=== PATIENT | male | born 1960 | race Caucasian/White ===

== ENCOUNTER → 2019-02-21 | Outpatient (CLI) | payer OTHER ==
[~2019-02-21] MED LIST: ASPI-9 PO; BSC10SU PR; HYDR-3458 PO; OXYC60TA9 PO; POLY17PO23 GT
--- NOTE | 2019-02-22 07:19 | Diagnostic Imaging Report ---
INDICATION: Fall with right shoulder pain. AP and lateral views of the right scapula are obtained. FINDINGS: No acute fracture or dislocation is identified. No abnormal lytic or sclerotic focus is seen, and there is no radiopaque foreign body. There is mild narrowing of the acromioclavicular joint. IMPRESSION: No acute abnormality. Mild acromioclavicular degenerative change is present. Dictated by: Dictated on workstation # [id number]
--- NOTE | 2019-02-22 07:21 | Diagnostic Imaging Report ---
INDICATION: Right shoulder and chest pain. FINDINGS: AP and oblique views of right ribs are obtained. No acute fracture or malalignment is identified. There is no abnormal lytic or sclerotic focus. There is no significant pleural fluid. IMPRESSION: No radiographic evidence of displaced right rib fracture. Dictated by: Dictated on workstation # [id number]
== END ==
LOC: RAD FS 11:22
PROVIDERS: ATTEND Nurse Practitioner Family
DX: M19.011 Primary osteoarthritis, right shoulder (principal); R07.81 Pleurodynia; M89.8X1 Other specified disorders of bone, shoulder; W19.XXXA Unspecified fall, initial encounter
CPT/HCPCS: 71100; 73010

== ENCOUNTER → 2019-03-01 | Outpatient (CLI) | payer OTHER ==
--- NOTE | 2019-03-01 12:42 | Diagnostic Imaging Report ---
INDICATION: Neck pain. 5 views of cervical spine were obtained. FINDINGS: There has been an anterior cervical disc fusion from C5 to C7 with plate and screws. Hardware is in satisfactory position. No loosening. Appears be satisfactory fusion. There is no fracture or traumatic subluxation. Odontoids intact and lateral masses are well aligned. Prevertebral soft tissues are within normal limits. There is some degenerative disc disease at C4-C5. IMPRESSION: Stable ACDF from C5 to C7 as described. Degenerative disc disease at C4-C5. Dictated by: Dictated on workstation # [id number]
== END ==
LOC: RAD FS 10:55
PROVIDERS: ATTEND Nurse Practitioner
DX: M50.321 Other cervical disc degeneration at C4-C5 level (principal); Z98.1 Arthrodesis status
CPT/HCPCS: 72050

== ENCOUNTER 2022-08-05 12:43 | Emergency (ER) | payer BC, OTHER ==
--- NOTE | 2022-08-05 12:48 | ED Upper Extremity ---
General Chief Complaint: Upper Extremity Stated Complaint: RT SHOULDER INJ History of Present Illness Date Seen by Provider: August 05, 2022 Time Seen by Provider: 12:47 Initial Comments 62-year-old male presents with chronic right shoulder and upper thoracic back pain. Patient reports that he woke up this morning and had worsening pain in his right arm right shoulder right wrist. He denies any new injury. He reports he is got previous injury both the shoulder area and his neck with a prior neck surgery. He takes extended release and immediate release morphine already for pain. Patient reports that he went to the chiropractor this morning but nothing was done to help him. Patient reports she has had a previous fall over 2 weeks ago. Allergies and Home Medications Allergies Coded Allergies: No Known Drug Allergies (Unverified , 12/22/12) Patient Home Medication List Home Medication List Reviewed: Yes Aspirin/Calcium Carbonate/Mag (Aspirin Buffered 325 Mg Tab) 325 Mg Tablet, 325 MG PO DAILY, (Reported) Entered as Reported by: GWEN HATCH on 12/22/12 0952 Bisacodyl (Dulcolax Pr) 10 Mg Supp, 10 MG [place] DAILY Prescribed by: CHANTAL DEAN on 12/22/12 1112 Hydrocodone Bit/Acetaminophen (Vicodin Hp 10-300 Mg Tablet) 1 Each Tablet, 1 EACH PO, (Reported) Entered as Reported by: GWEN HATCH on 12/22/12 0952 Oxycodone Hcl (Oxycontin) 60 Mg Tab.sr.12h, 60 MG PO Q12H, (Reported) Entered as Reported by: GWEN HATCH on 12/22/12 0952 Polyethylene Glycol (Miralax 17 Gm Packet) 17 Gm Pack, 17 GM GT BID Prescribed by: CHANTAL DEAN on 12/22/12 1112 Review of Systems Constitutional: no symptoms reported Respiratory: no symptoms reported Cardiovascular: no symptoms reported Genitourinary: no symptoms reported Musculoskeletal: see HPI Skin: no symptoms reported Psychiatric/Neurological: No Symptoms Reported Past Hvipsfi-Labacr-Tudumi Hx Past Medical History Gastroesophageal Reflux, Chronic Constipation Rheumatoid Arthritis Physical Exam Vital Signs Vital Signs - First Documented 08/05/22 12:49 Temp 37.2 Pulse 101 Resp 16 B/P (MAP) 154/91 (112) Pulse Ox 98 O2 Delivery Room Air Capillary Refill : Height, Weight, BMI Height: '" Weight: 183lbs. oz. 83.684806uj; BMI Method:Stated General Appearance: WD/WN, no apparent distress Neck: tender lateral; No tender midline Cardiovascular: normal peripheral pulses, regular rate, rhythm Respiratory: chest non-tender, lungs clear, normal breath sounds Back: no vertebral tenderness, other (right posterior shoulder tenderness ) Shoulder: soft tissue tenderness Elbow/Forearm: no evidence of injury Wrist: Yes no evidence of injury Hand: no evidence of injury Neurologic/Psychiatric: alert, other (Confrontational) Skin: normal color, warm/dry Progress/Results/Core Measures Results/Orders My Orders Orders - MCGREGOR,ROSA L DO Shoulder 3 View Right (08/05/22 12:59) Ketorolac Injection (Toradol Injection) (08/05/22 12:59) Orphenadrine Inj (Ed Only) (Norflex Inje (08/05/22 12:59) Wrist 3 View Right (08/05/22 12:59) Vital Signs/I&O 08/05/22 12:49 Temp 37.2 Pulse 101 Resp 16 B/P (MAP) 154/91 (112) Pulse Ox 98 O2 Delivery Room Air Progress Progress Note : Progress Note Patient's initial complaint was for chronic pain that was worse upon his arrival to the ER. Patient was requesting x-rays. I discussed with him that x-rays were not really indicated since there was no injury but that we would obtain one since he had concerns. Patient has prescriptions for both morphine extended and short-term release. When I went to discuss x-ray findings with patient he then brought up the fact that he had a "bee sting" last week in his posterior neck and that he is "sick" I discussed with him that he had not brought this up previously, I looked at his neck and saw a very mild erythema consistent with a healing sting but no signs of infection or other concerns. He then brought up swelling that was new on his bilateral anterior clavicle region. He had not brought this up in my previous visit in the room. When I asked him if he had seen his primary care provider for this he reportedly "cannot get into them" and that he is upset that we do not have a "hospital here" I asked him how long the swelling areas have been there and he reported they have been there for about 4 to 5 days. He also did not mention this when he initially came in I asked him what brought him to the emergency room and he was just complaining of pain in the right arm and shoulder that is chronic. I discussed with patient that if he would like a further evaluation since he just brought this up that we could obtain labs and a CT to further evaluate the swelling. At that time patient once again remained very confrontational and states that he would just go and follow-up with his primary care provider. Patient refused any paperwork at dis charge and just went ahead and left. Diagnostic Imaging Comments Date of Exam:08/05/22 WRIST 3 VIEW RIGHT INDICATION: Right wrist pain. TECHNIQUE: AP, oblique, and lateral views of the right wrist are obtained. FINDINGS: No fracture or acute bony abnormality is seen. Joint spaces are unremarkable. IMPRESSION: Negative right wrist. Reviewed: Reviewed by Me, Reviewed/Discussed Diagonstic Imaging: Xray Comments Date of Exam:08/05/22 SHOULDER 3 VIEW RIGHT INDICATION: Shoulder pain exacerbated by movement. FINDINGS: Three-view right shoulder performed. Glenohumeral alignment appeared anatomic. There is some degenerative changes to the AC joint. No fracture, loose body or erosion. IMPRESSION: Mild degenerative changes with normal alignment and no acute bony abnormality. Reviewed: Reviewed by Me, Reviewed/Discussed Departure Impression Primary Impression: Chronic pain in right shoulder Additional Impression: Arm pain, right Disposition: 01 HOME, SELF-CARE Condition: Stable Departure-Patient Inst. Referrals: BRE VALDEZ MD (PCP) Primary Care Physician Add. Discharge Instructions: Follow-up with your primary care provider for further evaluation All discharge instructions reviewed with patient and/or family. Voiced understanding. ROSA MCGREGOR DO August 05, 2022 12:47
[2022-08-05] MEDS ORDERED: KETOROLAC 30 MG/ML VIAL IM STA (12:59)
[2022-08-05] MEDS ORDERED: ORPHENADRINE 60 MG/2 ML (NORFLEX) AMP (ED ONLY) IM STA (12:59)
--- NOTE | 2022-08-05 13:27 | Diagnostic Imaging Report ---
INDICATION: Shoulder pain exacerbated by movement. FINDINGS: Three-view right shoulder performed. Glenohumeral alignment appeared anatomic. There is some degenerative changes to the AC joint. No fracture, loose body or erosion. IMPRESSION: Mild degenerative changes with normal alignment and no acute bony abnormality. Dictated by: Dictated on workstation # [id number]
[2022-08-05 13:35] VITALS: BP 133/65
--- NOTE | 2022-08-05 13:37 | Diagnostic Imaging Report ---
INDICATION: Right wrist pain. TECHNIQUE: AP, oblique, and lateral views of the right wrist are obtained. FINDINGS: No fracture or acute bony abnormality is seen. Joint spaces are unremarkable. IMPRESSION: Negative right wrist. Dictated by: Dictated on workstation # [id number]
== END 2022-08-05 13:35 | disposition home or self-care (01) ==
LOC: EDUNIT# 12:43 → ER FS 12:44
DX: M25.511 Pain in right shoulder (principal); G89.29 Other chronic pain; M25.531 Pain in right wrist
CPT/HCPCS: 73030; 73110

== ENCOUNTER 2022-08-07 07:14 | Emergency (ER) | payer BC ==
[~2022-08-07] VITALS: Ht 182 cm; Wt 85.0 kg
[2022-08-07 07:24] VITALS: BP 172/96
[2022-08-07] MEDS ORDERED: ASPIRIN 81 MG CHEW (CHILDREN'S ASA) PO ONE (07:30)
[2022-08-07] MEDS ORDERED: ACETAMINOPHEN 500 MG TAB (TYLENOL) PO PRN (07:30)
[2022-08-07] MEDS ORDERED: NS IV 1000 ML 1,000 ML IV SCH (07:30)
--- NOTE | 2022-08-07 07:34 | ED General ---
General Chief Complaint: General Problems/Pain Stated Complaint: CHEST PAIN Source of Information: Patient, Family, Old Records Exam Limitations: No Limitations History of Present Illness Date Seen by Provider: August 07, 2022 Time Seen by Provider: 07:15 Initial Comments 62-year-old male with past medical history of rheumatoid arthritis and chronic pain coming in due to pain over his entire body. Started 3 days ago, has not had discomfort, shoulder pain, and this goes all the way down to his feet. He states his body just feels like it is aching. He is also had a slightly productive cough which is new. He feels like his breathing is a little bit harder than usual. He denies any cardiac or lung history. Denies any previous history of DVT or PE, no lower extremity swelling or pain, no recent surgery, no hormone use. Otherwise denying any nausea, vomiting, real chest pain, abdominal pain, focal weakness or numbness, diarrhea, dysuria, rash, or any other concern s. He does note that he was stung by some type of insect 3 days ago on the back of his neck, he states he does not have any tick bites and has not really been outside for one to occur. Allergies and Home Medications Allergies Coded Allergies: No Known Drug Allergies (Unverified , 12/22/12) Patient Home Medication List Home Medication List Reviewed: Yes Aspirin/Calcium Carbonate/Mag (Aspirin Buffered 325 Mg Tab) 325 Mg Tablet, 325 MG PO DAILY, (Reported) Entered as Reported by: GWEN HATCH on 12/22/12 09 Bisacodyl (Dulcolax Pr) 10 Mg Supp, 10 MG [place] DAILY Prescribed by: CHANTAL DEAN on 12/22/12 111 Hydrocodone Bit/Acetaminophen (Vicodin Hp 10-300 Mg Tablet) 1 Each Tablet, 1 EACH PO, (Reported) Entered as Reported by: GWEN HATCH on 12/22/12 09 Oxycodone Hcl (Oxycontin) 60 Mg Tab.sr.12h, 60 MG PO Q12H, (Reported) Entered as Reported by: GWEN HATCH on 12/22/12 09 Polyethylene Glycol (Miralax 17 Gm Packet) 17 Gm Pack, 17 GM GT BID Prescribed by: CHANTAL DEAN on 12/22/12 1112 Review of Systems Review of Systems Constitutional: malaise EENTM: No nose congestion Respiratory: cough, short of breath Cardiovascular: No chest pain Gastrointestinal: No abdominal pain, No nausea, No vomiting Genitourinary: no symptoms reported Musculoskeletal: see HPI Skin: no symptoms reported Psychiatric/Neurological: No Symptoms Reported Hematologic/Lymphatic: No Symptoms Reported All Other Systems Reviewed Negative Unless Noted: Yes Past Xxvksrj-Uragyi-Odrdfu Hx Patient Social History Tobacco Use?: No Use of E-Cig and/or Vaping dev: No Substance use?: No Alcohol Use?: No Immunizations Up To Date First/Initial COVID19 Vaccinat: YES Second COVID19 Vaccination Shubham: YES Third COVID19 Vaccination Date: YES Past Medical History Surgery/Hospitalization HX: RA; Chronic neck and back pain; Neck surgery; right rotator cuff repair; hernia repair; R testicle removed. Surgeries: Yes Orthopedic Gastroesophageal Reflux, Chronic Constipation Rheumatoid Arthritis Physical Exam Vital Signs Vital Signs - First Documented 08/07/22 07:24 Temp 37.8 Pulse 122 Resp 18 B/P (MAP) 172/96 (121) Pulse Ox 96 O2 Delivery Room Air Capillary Refill : Height, Weight, BMI Height: '" Weight: 183lbs. oz. 83.461907np; BMI Method:Stated General Appearance: WD/WN, Anxious Eyes: Bilateral Eye Normal Inspection, Bilateral Eye PERRL HEENT: PERRL/EOMI, Normal ENT Inspection, Pharynx Normal Neck: Full Range of Motion, Normal Inspection, Non Tender, Supple, Other (no meningismus) Respiratory: Chest Non Tender, Lungs Clear, Normal Breath Sounds, No Accessory Muscle Use, No Respiratory Distress Cardiovascular: No Edema, Normal Peripheral Pulses, Tachycardia Gastrointestinal: Normal Bowel Sounds, Non Tender, Soft; No Distended, No Guarding Back: Normal Inspection, No CVA Tenderness, No Vertebral Tenderness Extremity: Normal Capillary Refill, Normal Inspection, Normal Range of Motion, Non Tender, No Calf Tenderness, No Pedal Edema Neurologic/Psychiatric: Alert, Oriented x3, No Motor/Sensory Deficits, Normal Mood/Affect Skin: Normal Color, Warm/Dry Focused Exam Lactate Level 08/07/22 07:28: Lactic Acid Level 2.46*H Lactic Acid Level Laboratory Tests Test 08/07/22 07:28 Lactic Acid Level 2.46 MMOL/L (0.50-2.00) *H Progress/Results/Core Measures Suspected Sepsis SIRS Temperature: Pulse: Respiratory Rate: Laboratory Tests 08/07/22 07:28: White Blood Count 13.2H Blood Pressure / Mean: 08/07/22 07:28: Lactic Acid Level 2.46*H Laboratory Tests 08/07/22 07:28: Creatinine 0.65, Platelet Count 217, Total Bilirubin 0.4 Results/Orders Lab Results Laboratory Tests Test 08/07/22 07:28 Range/Units White Blood Count 13.2 H 4.3-11.0 10^3/uL Red Blood Count 4.76 4.30-5.52 10^6/uL Hemoglobin 15.7 13.3-17.7 g/dL Hematocrit 45 40-54 % Mean Corpuscular Volume 95 80-99 fL Mean Corpuscular Hemoglobin 33 25-34 pg Mean Corpuscular Hemoglobin Concent 35 32-36 g/dL Red Cell Distribution Width 11.6 10.0-14.5 % Platelet Count 217 130-400 10^3/uL Mean Platelet Volume 9.2 9.0-12.2 fL Immature Granulocyte % (Auto) 0 % Neutrophils (%) (Auto) 86 H 42-75 % Lymphocytes (%) (Auto) 8 L 12-44 % Monocytes (%) (Auto) 6 0-12 % Eosinophils (%) (Auto) 0 0-10 % Basophils (%) (Auto) 0 0-10 % Neutrophils # (Auto) 11.3 H 1.8-7.8 10^3/uL Lymphocytes # (Auto) 1.0 1.0-4.0 10^3/uL Monocytes # (Auto) 0.8 0.0-1.0 10^3/uL Eosinophils # (Auto) 0.0 0.0-0.3 10^3/uL Basophils # (Auto) 0.0 0.0-0.1 10^3/uL Immature Granulocyte # (Auto) 0.0 0.0-0.1 10^3/uL Neutrophils % (Manual) 71 % Lymphocytes % (Manual) 17 % Monocytes % (Manual) 4 % Eosinophils % (Manual) 0 % Basophils % (Manual) 0 % Band Neutrophils 8 % Sodium Level 139 135-145 MMOL/L Potassium Level 4.0 3.6-5.0 MMOL/L Chloride Level 100 98-107 MMOL/L Carbon Dioxide Level 26 21-32 MMOL/L Anion Gap 13 5-14 MMOL/L Blood Urea Nitrogen 14 7-18 MG/DL Creatinine 0.65 0.60-1.30 MG/DL Estimat Glomerular Filtration Rate 105 BUN/Creatinine Ratio 22 Glucose Level 159 H 70-105 MG/DL Lactic Acid Level 2.46 *H 0.50-2.00 MMOL/L Calcium Level 9.9 8.5-10.1 MG/DL Corrected Calcium 9.7 8.5-10.1 MG/DL Total Bilirubin 0.4 0.1-1.0 MG/DL Aspartate Amino Transf (AST/SGOT) 39 H 5-34 U/L Alanine Aminotransferase (ALT/SGPT) 30 0-55 U/L Alkaline Phosphatase 143 H 40-136 U/L Troponin I < 0.30 <0.30 NG/ML Pro-B-Type Natriuretic Peptide 327.9 H <125.0 PG/ML Total Protein 7.9 6.4-8.2 GM/DL Albumin 4.3 3.2-4.5 GM/DL SARS-CoV-2 RNA (RT-PCR) Not Detected Not Detecte My Orders Orders - GLEN POSADA MD Cbc With Automated Diff (08/07/22 07:29) Comprehensive Metabolic Panel (08/07/22 07:29) Blood Culture (08/07/22:29) Protime With Inr (08/07/22:) Partial Thromboplastin Time (08/07/22:29) Chest 1 View Ap/Pa Only (08/07/22 07:29) Acetaminophen Tablet (Tylenol Tablet) (08/07/22 07:30) Ed Iv/Invasive Line Start (08/07/22 07:29) Ekg Tracing (08/07/22 07:29) Vital Signs Adult Sepsis Patie Q15M (08/07/22 07:29) O2 (08/07/22 07:29) Remove Rings In Anticipation O (08/07/22:29) Lactic Acid Analyzer (08/07/22:29) Ns Iv 1000 Ml (Sodium Chloride 0.9%) (08/07/22 07:30) Aspirin Chewable Tablet (Baby Aspirin Ch (08/07/22 07:30) Fibrin Degradation Products (08/07/22:29) Troponin I Fs (08/07/22 07:29) Probnp Fs (08/07/22 07:29) Covid 19 Inhouse Test (08/07/22 07:29) Manual Differential (08/07/22 07:28) Ceftriaxone Iv/Im (Rocephin Iv/Im) (08/07/22 08:00) Doxycycline Hyclate Tablet (Vibramycin T (08/07/22 07:56) Ceftriaxone Pre-Mix (Rocephin Pre-Mix) (08/07/22 08:00) Medications Given in ED Current Medications Medications Dose Ordered Sig/Pete Route Start Time Stop Time Status Last Admin Dose Admin Acetaminophen 1,000 mg ONCE PRN PO 08/07/22 07:30 08/07/22 07:38 DC 08/07/22 07:38 1,000 MG Aspirin 324 mg ONCE ONCE PO 08/07/22 07:30 08/07/22 07:32 DC 08/07/22 07:38 324 MG Ceftriaxone Sodium/Dextrose 50 ml @ ud STK-MED ONCE IV 08/07/22 08:00 08/07/22 08:03 DC 08/07/22 08:04 50 MLS/HR Vital Signs/I&O 08/07/22 07:24 Temp 37.8 Pulse 122 Resp 18 B/P (MAP) 172/96 (121) Pulse Ox 96 O2 Delivery Room Air Capillary Refill : Progress Note : Progress Note 62-year-old male with above history coming in due to body aches, cough, shortness of breath. The patient was tachycardic on presentation and mildly hypertensive but otherwise ABCs intact. An IV was placed and basic labs were obtained including septic work-up given his elevated temperature. His lactic acid was slightly elevated at 2.4, white blood cell count slightly elevated just above 13, troponin negative, creatinine normal, age-adjusted D-dimer is normal. EKG ordered and interpreted by me showing sinus tachycardia with no acute ischemic changes. Chest x-ray ordered and interpreted by me showing right sided infiltrate concerning for pneumonia. He was given IV ceftriaxone and oral doxycycline. His CURB-65 score is 0 and PORT score is 64 making outpatient management a reasonable option for the patient. He was also given Tylenol for his body aches. IV fluids given for his tachycardia with some improvement in these vitals. He is otherwise roughly 96% on room air even with ambulation. I believe he is stable for discharge with outpatient management with antibiotics. He was sent home with strict return precautions ECG Initial ECG Impression Date: August 07, 2022 Initial ECG Impression Time: 07:49 Initial ECG Rate: 119 Initial ECG Rhythm: S.Tach Comment Narrow QRS, normal axis, no significant ST changes or T wave abnormalities Diagnostic Imaging Diagonstic Imaging: Xray (chest) Comments NAME: [facility] REC#: [id number] PT STATUS: REG ER : 1960 PHYSICIAN: GLEN POSADA MD ADMIT DATE: 08/07/22/ER FS Signed Date of Exam:08/07/22 CHEST 1 VIEW AP/PA ONLY EXAMINATION: Chest 1 view HISTORY: SOB COMPARISON: None available. FINDINGS: Heart size and pulmonary vasculature are normal. There is focal consolidation within the right midlung. No pleural effusion or pneumothorax. The osseous structures are intact. IMPRESSION: 1. Focal consolidation within the right midlung concerning for pneumonia. Dictated by: Dictated on workstation # [id number] Dict: 08/07/22 0745 Trans: 08/07/22 0800 [facility] [id number] Interpreted by: ESTEPHANIE DE JESUS DO Electronically signed by: ESTEPHANIE DE JESUS DO 08/07/22 0800 Departure Impression Primary Impression: Pneumonia Qualified Codes: J18.9 - Pneumonia, unspecified organism Disposition: 01 HOME, SELF-CARE Condition: Stable Departure-Patient Inst. Decision time for Depature: 08:30 Referrals: BRE VALDEZ MD (PCP) Primary Care Physician Patient Instructions: Pneumonia, Adult ED Add. Discharge Instructions: You do have pneumonia on the right side. You will be on antibiotics for the next week. You will take the first dose of this tomorrow since your IV antibiotics you got today last for 24 hours. Medicines for heartburn were also sent to your pharmacy while you are doing this therapy. Follow-up with your regular doctor in the next week if you are not feeling better. You likely will still feel rather bad for 24 to 48 hours while the antibiotics are starting to work. If your body is hurting, take Tylenol and/or ibuprofen to help. Scripts Pantoprazole Sodium (Protonix) 40 Mg Tablet.dr 40 MG PO DAILY for 14 Days, #14 TAB Prov: GLEN POSADA MD 08/07/22 Cefdinir (Cefdinir) 300 Mg Capsule 300 MG PO BID for 7 Days, #14 CAP 0 Refills Prov: GLEN POSADA MD 08/07/22 Work/School Note: Work Release Form Date Seen in the Emergency Department: August 07, 2022 Return to Work: August 10, 2022 Restrictions: Return-No Fever (24hrs) GLEN POSADA MD August 07, 2022 07:34
[2022-08-07 07:45] LABS: BASOPHILS % (AUTO) 0 % (0-10); EOSINOPHILS % (AUTO) 0 % (0-10); HEMATOCRIT 45 % (40-54); HEMOGLOBIN 15.7 g/dL (13.3-17.7); LYMPHOCYTES % (AUTO) 8 % (12-44); MEAN CORPUSCULAR HEMOGLOBIN 33 pg (25-34); MEAN CORPUSCULAR HGB CONC 35 g/dL (32-36); MEAN CORPUSCULAR VOLUME 95 fL (80-99); MEAN PLATELET VOLUME 9.2 fL (9.0-12.2); MONOCYTES # (AUTO) 0.8 10^3/uL (0.0-1.0); MONOCYTES % (AUTO) 6 % (0-12); NEUTROPHILS # (AUTO) 11.3 10^3/uL (1.8-7.8); NEUTROPHILS % (AUTO) 86 % (42-75); PLATELET COUNT 217 10^3/uL (130-400); WHITE BLOOD COUNT 13.2 10^3/uL (4.3-11.0)
[2022-08-07] MEDS ORDERED: DOXYCYCLINE 100 MG (VIBRAMYCIN) TABLET PO STA (07:56)
--- NOTE | 2022-08-07 07:57 | Diagnostic Imaging Report ---
EXAMINATION: Chest 1 view HISTORY: SOB COMPARISON: None available. FINDINGS: Heart size and pulmonary vasculature are normal. There is focal consolidation within the right midlung. No pleural effusion or pneumothorax. The osseous structures are intact. IMPRESSION: 1. Focal consolidation within the right midlung concerning for pneumonia. Dictated by: Dictated on workstation # [id number]
[2022-08-07] MEDS ORDERED: cefTRIAXone IV/IM 1,000 MG in NS (IVPB) 50 ML IV ONE (08:00)
[2022-08-07] MEDS ORDERED: cefTRIAXone PRE-MIX 50 ML IV ONE (08:00)
[2022-08-07 08:16] LABS: BAND NEUTROPHILS 8 %; BASOPHILS % (MANUAL) 0 %; EOSINOPHILS % (MANUAL) 0 %; LYMPHOCYTES % (MANUAL) 17 %; MONOCYTES % (MANUAL) 4 %; NEUTROPHILS % (MANUAL) 71 %
[2022-08-07 08:18] LABS: ALANINE AMINOTRANSFERASE 30 U/L (0-55); ALKALINE PHOSPHATASE 143 U/L (40-136); BILIRUBIN,TOTAL 0.4 MG/DL (0.1-1.0); BUN/CREATININE RATIO 22; CALCIUM 9.9 MG/DL (8.5-10.1); CARBON DIOXIDE 26 MMOL/L (21-32); CHLORIDE 100 MMOL/L (98-107); CREATININE SERUM 0.65 MG/DL (0.60-1.30); GFR ESTIMATED 105; GLUCOSE 159 MG/DL (70-105); SODIUM 139 MMOL/L (135-145)
[2022-08-07 08:19] LABS: ALBUMIN 4.3 GM/DL (3.2-4.5); TOTAL PROTEIN 7.9 GM/DL (6.4-8.2)
[2022-08-07 08:21] LABS: FIBRIN DEGRADATION PRODUCTS 0.63 UG/ML (0.00-0.49); INR 0.8 (0.8-1.4); PROTHROMBIN TIME PATIENT 11.9 SEC (12.2-14.7)
[2022-08-07] MEDS ORDERED: ANTACID SUSP 30 ML UDC (MYLANTA) PO ONE (08:30)
[2022-08-07] MEDS ORDERED: FAMOTIDINE 20 MG (PEPCID) TABLET PO ONE (08:30)
[2022-08-07] MEDS ORDERED: PANT40TA2 PO (08:30)
[2022-08-07] MEDS ORDERED: CEFD300C3 PO (08:30)
== END 2022-08-07 08:40 | disposition home or self-care (01) ==
LOC: EDUNIT# 07:14 → ER FS 07:17
DX: J18.9 Pneumonia, unspecified organism (principal); R00.0 Tachycardia, unspecified; Z20.822 Contact with and (suspected) exposure to COVID-19
CPT/HCPCS: 36415; 71045; 80053; 83605; 83880; 84484; 85007; 85027; 85379; 85610; 85730; 87040; 87636; 93005